=== PATIENT | female | born 1995 | race American Indian/Alaskan Native ===

== ENCOUNTER 2021-09-16 23:15 | Emergency (ER) | payer SELFPAY ==
[2021-09-17 00:09] VITALS: BP 144/82
[2021-09-17] MEDS ORDERED: levETIRAcetam 1000 MG/NS 0.75% 1,000 MG/100 ML BAG IV ONE (00:31)
--- NOTE | 2021-09-17 00:38 | Emergency Department Report ---
ED General Adult HPI - General Chief complaint: Seizure Stated complaint: MUSCLE SPASM/SEIZURE PUI?: No Time Seen by Provider: 09/17/21 00:09 Source: patient, EMS Mode of arrival: Stretcher Limitations: No Limitations - History of Present Illness Initial comments: This is a pleasant 25 year old female with medical history of seizure; her first seizure episode was back in January 2018 where she was started on Keppra 40 mg however she also had another groin mall seizure in March 2018 and since then the Keppra has been is 750 mg twice daily. According to patient she forgot to take her Keppra today in the morning which she usually takes at night o'clock in the morning was 9 PM. Patient said that she left work at 7:30AM and on the way home while in her friend's car, had a seizure episode where she bit her oral mucous membrane; denies tongue biting or bowel/bladder incontinence. Patient currently denies any discomfort but only feeling slight dizzy. Patient denies fever chill night sweat blurred vision headache tinnitus ear pain runny nose sore throat loss of taste or smell chest pain palpitation short of breath cough abdominal pain nausea vomiting diarrhea constipation joint pain muscle pain new rash and heat or cold intolerance. Severity scale (0 -10): 0 - Related Data Allergies Allergy/AdvReac Type Severity Reaction Status Date / Time No Known Allergies Allergy Unverified 09/17/21 00:10 ED Review of Systems ROS: Stated complaint: MUSCLE SPASM/SEIZURE Other details as noted in HPI Constitutional: no symptoms reported, see HPI Eyes: as per HPI ENT: as per HPI Respiratory: no symptoms reported, see HPI Cardiovascular: as per HPI Endocrine: no symptoms reported, see HPI Gastrointestinal: as per HPI Genitourinary: as per HPI Musculoskeletal: as per HPI Skin: as per HPI Neurological: as per HPI Psychiatric: as per HPI Hematological/Lymphatic: as per HPI ED Past Medical Hx - Past Medical History Previous Medical History?: Yes Hx Seizures: Yes - Surgical History Past Surgical History?: No ED Physical Exam - General Limitations: No Limitations General appearance: alert, in no apparent distress - Head Head exam: Present: atraumatic, normocephalic, normal inspection - Eye Eye exam: Present: normal appearance, PERRL, EOMI Pupils: Present: normal accommodation - ENT ENT exam: Present: normal exam, normal orophraynx, mucous membranes moist - Neck Neck exam: Present: normal inspection - Respiratory Respiratory exam: Present: normal lung sounds bilaterally - Cardiovascular Cardiovascular Exam: Present: regular rate, normal rhythm - GI/Abdominal GI/Abdominal exam: Present: soft - Extremities Exam Extremities exam: Present: normal inspection, full ROM - Back Exam Back exam: Present: normal inspection, full ROM - Neurological Exam Neurological exam: Present: oriented X3, CN II-XII intact - Psychiatric Psychiatric exam: Present: normal affect, normal mood. Absent: depressed, agitated, anxious, flat affect, manic, homicidal ideation, suicidal ideation - Skin Skin exam: Present: normal color ED Course Vital Signs 09/17/21 00:08 Temperature 97.8 F Pulse Rate 102 H Respiratory 18 Rate Blood Pressure 144/82 [Right] O2 Sat by Pulse 100 Oximetry - Reevaluation(s) Reevaluation #1: 09/17/21 02:14 ALL THE LABS REVIEWED AND PATENT DENIES DYSURIA. I HAVE REEVALUATED THE PATIENT AND PATIENT APPEARS COMFORTABLE. PENDING FOR PATIENT TO RECEIVE KEPPRA TO BE DISCHARGED. ED Medical Decision Making - Lab Data Result diagrams: 09/17/21 00:38 09/17/21 00:38 - Medical Decision Making NO SEIZURE WHILE IN THE EMERGENCY ROOM. Critical care attestation.: If time is entered above; I have spent that time in minutes in the direct care of this critically ill patient, excluding procedure time. ED Disposition Clinical Impression: Seizure, Medically noncompliant Disposition: 01 HOME / SELF CARE / HOMELESS Is pt being admited?: No Does the pt Need Aspirin: No Condition: Stable Instructions: Seizure, Adult, [id number] Additional Instructions: PLEASE RETURN YOUR KEPPRA YOU WERE TAKING BEFORE, EVERY 12 HOURS AND MAKE A FOLLOW UP APPOINTMENT WITH YOUR NEUROLOGIST TO BE SEEN WITHIN 3 DAYS. Time of Disposition: 02:58
[2021-09-17 00:54] LABS: Basophils % (Auto) 0.4 % (0.0-1.8); Eosinophils # (Auto) 0.1 K/mm3 (0.0-0.4); Eosinophils % (Auto) 1.2 % (0.0-4.3); Hematocrit 39.8 % (30.3-42.9); Hemoglobin 13.2 gm/dl (10.1-14.3); Lymphocytes # (Auto) 1.3 K/mm3 (1.2-5.4); Lymphocytes % (Auto) 13.5 % (13.4-35.0); Mean Corpuscular HGB Conc 33 % (30-34); Mean Corpuscular Volume 93 fl (79-97); Monocytes # (Auto) 0.6 K/mm3 (0.0-0.8); Monocytes % (Auto) 6.4 % (0.0-7.3); Platelet Count 270 K/mm3 (140-440); Red Blood Count 4.29 M/mm3 (3.65-5.03); Red Cell Distribution Width 12.7 % (13.2-15.2)
[2021-09-17 01:12] LABS: Bacteria,Urine 3+ /HPF (Negative); Bilirubin,Urine NEG (Negative); Blood,Urine SM (Negative); Color,Urine Yellow (Yellow); Mucus,Urine 1+ /HPF; Protein,Urine <15 mg/dL mg/dL (Negative); Urobilinogen,Urine < 2.0 mg/dL (<2.0)
[2021-09-17 01:14] LABS: Alanine Aminotransferase 13 units/L (7-56); Albumin 4.7 g/dL (3.9-5); BUN/Creatinine Ratio 15; Blood Urea Nitrogen 12 mg/dL (7-17); Calcium 9.4 mg/dL (8.4-10.2); Hemolysis Index 10
[2021-09-17 01:21] LABS: Amphetamine Screen,Urine Negative; Benzodiazepines Screen,Urine Negative; Cannabinoid Screen,Urine Negative; Cocaine Screen,Urine Negative; Methadone Screen,Urine Negative; Opiate Screen,Urine Negative
== END 2021-09-17 04:16 | disposition home or self-care (01) ==
LOC: ED 23:15
DX: R56.9 Unspecified convulsions (principal); Z91.14 Patient's other noncompliance with medication regimen; Z79.899 Other long term (current) drug therapy
CPT/HCPCS: 36415; 80053; 80307; 81001; 82140; 82550; 83735; 85025; 96365; 99284; J1953